=== PATIENT | male | born 1990 | race Caucasian/White ===

== ENCOUNTER 2016-11-16 08:49 | Emergency (ER) | payer OTHER ==
[~2016-11-16] VITALS: Ht 165.1 cm; Wt 174.6 kg
[2016-11-16] MEDS ORDERED: ALBU83IN (09:00)
[2016-11-16] MEDS ORDERED: ALBU17IN (09:00)
[2016-11-16] MEDS ORDERED: ARNU1INH3 (09:00)
[2016-11-16] MEDS ORDERED: ALBUTEROL SULFATE 2.5 MG/0.5 ML INH NEB SOLN INH ONE (09:30)
[2016-11-16] MEDS ORDERED: ALBU83IN INH (10:48)
[2016-11-16 11:05] VITALS: BP 133/75
== END 2016-11-16 11:08 | disposition home or self-care (01) ==
LOC: M ED 09:40
DX: Z76.0 Encounter for issue of repeat prescription (principal); J45.909 Unspecified asthma, uncomplicated; F17.200 Nicotine dependence, unspecified, uncomplicated; Z79.899 Other long term (current) drug therapy; Z79.51 Long term (current) use of inhaled steroids; Z88.8 Allergy status to other drugs, medicaments and biological substances; Z91.048 Other nonmedicinal substance allergy status

== ENCOUNTER 2017-01-13 10:39 | Emergency (ER) | payer OTHER ==
[~2017-01-13] VITALS: Ht 165.1 cm; Wt 170.6 kg
[~2017-01-13 10:39] MED LIST: ALBU17IN; ALBU83IN; ALBU83IN INH; ARNU1INH3
[2017-01-13] MEDS ORDERED: IBUP80TA PO (11:06)
[2017-01-13] MEDS ORDERED: ALBU17IN INH (11:06)
[2017-01-13] MEDS ORDERED: ALBU83IN INH (11:10)
[2017-01-13 11:13] VITALS: BP 145/85
[2017-01-13] MEDS ORDERED: ALBUTEROL 90 MCG/ACT 8GM HFA INHALER INH ONE (11:15)
== END 2017-01-13 11:33 | disposition home or self-care (01) ==
LOC: M ED 11:17
DX: J45.20 Mild intermittent asthma, uncomplicated (principal); Z76.0 Encounter for issue of repeat prescription; E66.9 Obesity, unspecified; F17.200 Nicotine dependence, unspecified, uncomplicated; Z82.49 Family history of ischemic heart disease and other diseases of the circulatory system; Z82.5 Family history of asthma and other chronic lower respiratory diseases; Z88.1 Allergy status to other antibiotic agents; Z91.09 Other allergy status, other than to drugs and biological substances; Z79.51 Long term (current) use of inhaled steroids

== ENCOUNTER 2017-02-09 07:52 | Emergency (ER) | payer MEDICAID, OTHER, SELFPAY ==
[~2017-02-09] VITALS: Ht 165.1 cm; Wt 172.7 kg
[~2017-02-09 07:52] MED LIST changes: +ALBU17IN INH; +IBUP80TA PO
[2017-02-09] MEDS ORDERED: IPRATROPIUM 0.5MG/ALBUTEROL 2.5MG INH SOL UD 3ML (DUONEB)(J7620) NEB SCH (09:00)
[2017-02-09] MEDS ORDERED: CLAR1TAB2 PO (09:13)
[2017-02-09] MEDS ORDERED: ALBU83IN INH (09:13)
[2017-02-09] MEDS ORDERED: AUGM875T28 PO (09:13)
[2017-02-09] MEDS ORDERED: MUCI600T37 PO (09:13)
[2017-02-09 09:26] VITALS: BP 147/72
--- NOTE | 2017-02-09 09:26 | REP ---
Chest two views HISTORY: Cough Comparison: 06/28/2016 The lungs are clear. A right azygos lobe is present. The heart is normal in size. The pulmonary vasculature is normal in appearance. The bony structure is intact. IMPRESSION: No acute disease. Signed by Baudilio Lancaster MD 02/09/2017 09:17 A
[2017-02-09] MEDS ORDERED: AUGMENTIN 875 MG TAB PO ONE (09:30)
== END 2017-02-09 09:36 | disposition home or self-care (01) ==
LOC: M ED 07:52
DX: J20.9 Acute bronchitis, unspecified (principal); J01.90 Acute sinusitis, unspecified; J45.909 Unspecified asthma, uncomplicated; F17.200 Nicotine dependence, unspecified, uncomplicated; Z91.89 Other specified personal risk factors, not elsewhere classified; Z88.8 Allergy status to other drugs, medicaments and biological substances

== ENCOUNTER 2017-02-22 23:38 | Emergency (ER) | payer MEDICAID, SELFPAY ==
[~2017-02-22] VITALS: Ht 165.1 cm; Wt 130.0 kg
[~2017-02-22 23:38] MED LIST changes: +AUGM875T28 PO; +CLAR1TAB2 PO; +MUCI600T37 PO
[2017-02-23] MEDS ORDERED: NS 1,000 ML IV ONE (01:00)
[2017-02-23 01:29] LABS: WHITE BLOOD COUNT 19.3 K/mm3 (4.0-10.0)
[2017-02-23 01:30] LABS: BASO # 0.3 K/mm3 (0.0-0.2); BASO % 1.4 % (0.0-1.0); EOS # 0.6 K/mm3 (0.0-0.50); EOS % 2.9 % (0.0-3.0); LARGE UNSTAINED CELL # 0.7 K/mm3 (0.0-0.4); LARGE UNSTAINED CELL % 3.7 % (0.0-4.0); LYMPH # 4.3 K/mm3 (1.5-6.5); LYMPH % 22.4 % (24.0-44.0); MEAN CORPUSCULAR HEMOGLOBIN 26.3 pg (27.0-33.0); MEAN CORPUSCULAR HGB CONC 33.5 g/dl (32.0-36.5); MEAN CORPUSCULAR VOLUME 78.5 fl (80.0-96.0); MONO # 1.2 K/mm3 (0.0-0.8); NEUTROPHILS # 12.3 K/mm3 (1.8-7.7); NEUTROPHILS % 63.6 % (36.0-66.0); PLATELET COUNT, AUTOMATED 381 k/mm3 (150-450); RED CELL DISTRIBUTION WIDTH 14.3 % (11.5-14.5)
[2017-02-23 01:40] LABS: ALBUMIN 3.6 GM/DL (3.2-5.2); ALBUMIN/GLOBULIN RATIO 0.92 (1.00-1.93); ALKALINE PHOSPHATASE 83 U/L (45-117); ALT/SGPT 34 U/L (12-78); ANION GAP 8 MEQ/L (8-16); AST/SGOT 15 U/L (15-37); BILIRUBIN,DIRECT < 0.1 MG/DL (0.0-0.2); BILIRUBIN,TOTAL 0.2 MG/DL (0.2-1.0); BLOOD UREA NITROGEN 12 MG/DL (7-18); CALCIUM LEVEL 9.4 MG/DL (8.5-10.1); CARBON DIOXIDE LEVEL 24 MEQ/L (21-32); CHLORIDE LEVEL 109 MEQ/L (98-107); CREATININE FOR GFR 0.83 MG/DL (0.70-1.30); GLOMERULAR FILTRATION RATE > 60.0 (>60); GLUCOSE, FASTING 131 MG/DL (70-105); POTASSIUM SERUM 3.3 MEQ/L (3.5-5.1); SODIUM LEVEL 141 MEQ/L (136-145); TOTAL PROTEIN 7.5 GM/DL (6.4-8.2)
[2017-02-23] MEDS ORDERED: ONDANSETRON 4MG/2ML VIAL (J2405) IV ONE (01:45)
[2017-02-23] MEDS: MORPHINE 4 MG/ML 1ML SYRINGE IV PRN ×2 (02:07→03:12)
[2017-02-23] MEDS ORDERED: ISOVUE-370 76% 100ML VIAL (Q9967) As Ordered ONE (02:21)
--- NOTE | 2017-02-23 03:20 | REPUSA ---
CLINICAL HISTORY: Pain. TECHNIQUE: Multiple incremental axial, coronal and oblique images are obtained from the thoracic inle t to the upper abdomen. Intravenous contrast material was administered as per pulmonary embolism prot ocol. COMMENTS: There is bilateral peribronchial interstitial thickening suggestive of bronchitis. There is excellent opacification of pulmonary arterial system without evidence for pulmonary embolism . Aorta is of normal caliber without evidence for dissection or aneurysm. Bilateral basilar atelectatic pulmonary changes. There is no evidence of pleural or parenchymal mass. There are no pleural effusions. There is no evid ence of hilar or mediastinal lymphadenopathy. The heart and great vessels are within normal limits. Images of the upper abdomen demonstrate no evidence of adrenal mass. The bony structures are free of lytic or blastic lesions. IMPRESSION: No evidence for pulmonary embolism. Bronchitis. Thank you for your kind referral of this patient.
--- NOTE | 2017-02-23 03:40 | REPUSA ---
CLINICAL HISTORY: Abdominal pain. TECHNIQUE: Multiple axial, sagittal and coronal CT images were obtained through the abdomen and pelvi s after administration of intravenous contrast material. COMMENTS: The liver is mildly enlarged with decreased attenuation without mass or defect. There is no intra or extrahepatic biliary ductal dilatation. The spleen is normal. The gallbladder is within normal limits . The pancreas is of normal contour and attenuation characteristics. There is no evidence of adrenal mass. 4 mm right renal nonobstructing stone. Both kidneys demonstrate prompt and equal nephrograms. The kidneys are normal in size, shape and conf iguration. There is no evidence of renal or ureteral mass. No left renal or ureteral calculi are iden tified. There is no hydroureter or hydronephrosis. No evidence for appendicitis. There is diffuse apparent thickening of the wall of the ascending colo n and the proximal aspect of the transverse colon. No evidence for small or large bowel obstruction. There is no evidence of abdominal ascites or lymphadenopathy. There is no evidence of intrinsic or extrinsic bladder mass. There is no pelvic ascites or lymphadeno karthikeyan. Images of the lung bases show no evidence of pleural or parenchymal mass. There are no pleural effusi ons. The bony structures are free of lytic or blastic lesions. Bilateral fat containing inguinal hernias without incarceration. IMPRESSION: Diffuse thickening of the wall of the ascending and proximal transverse colon. Underdistention, spasm versus mild colitis. Mild hepatomegaly with fatty infiltration. 4 mm right renal nonobstructing stone. Thank you for your kind referral of this patient.
[2017-02-23] MEDS ORDERED: AZITHROMYCIN 250 MG TAB PO ONE (04:30)
[2017-02-23] MEDS ORDERED: AZIT-12 PO (04:31)
[2017-02-23 04:49] VITALS: BP 152/68
--- NOTE | 2017-02-23 05:55 | ECGEPIP ---
Stationary ECG Study [facility] - ED Test Date: 2017-02-22 Pat Name: MELY SMILEY Department: Room: - Gender: M [employer]: : 1990 Requested By: WESLY Holloway Order Number: [id number] Reading MD: Rudy Caba Measurements Intervals [place] Rate: 91 P: 7 RI: 177 QRS: 53 QRSD: 113 T: 15 QT: 344 QTc: 425 Interpretive Statements SINUS RHYTHM MODERATE INTRAVENTRICULAR CONDUCTION DELAY NSSTW ABNORMALITIES Electronically Signed On 02-23-2017 5:54:55 EDT by Rudy Caba
== END 2017-02-23 04:52 | disposition home or self-care (01) ==
LOC: M ED 23:38
DX: J20.9 Acute bronchitis, unspecified (principal); J45.909 Unspecified asthma, uncomplicated; F17.200 Nicotine dependence, unspecified, uncomplicated; R16.1 Splenomegaly, not elsewhere classified; K76.0 Fatty (change of) liver, not elsewhere classified; N20.0 Calculus of kidney; Z88.8 Allergy status to other drugs, medicaments and biological substances
CPT/HCPCS: 36415; 71275; 74177; 80048; 80076; 82550; 82553; 83690; 85025; 93005; 93041; 96361; 96374; 96375; 99284; J2405; Q9967

== ENCOUNTER → 2017-03-08 | Outpatient (CLI) | payer MEDICAID ==
[~2017-03-08] MED LIST changes: +AZIT-12 PO
== END ==
LOC: M LAB 13:17
PROVIDERS: ATTEND Internal Medicine Cardiovascular Disease
DX: Z53.9 Procedure and treatment not carried out, unspecified reason (principal)

== ENCOUNTER → 2017-03-08 | Outpatient (CLI) | payer MEDICAID | LOC: M LAB 13:14 | PROVIDERS: ATTEND Nurse Practitioner Adult Health | DX: Z22.322 Carrier or suspected carrier of Methicillin resistant Staphylococcus aureus (principal) ==

== ENCOUNTER 2017-06-23 15:57 | Emergency (ER) | payer MEDICAID, OTHER ==
[~2017-06-23] VITALS: Ht 165.1 cm; Wt 175.4 kg
[2017-06-23] MEDS ORDERED: LISI10TA4 PO (16:33)
[2017-06-23] MEDS ORDERED: BRIL90TA PO (16:33)
[2017-06-23] MEDS ORDERED: CARV3.12 PO (16:33)
[2017-06-23] MEDS ORDERED: ATOR40TA75 PO (16:33)
[2017-06-23] MEDS ORDERED: ALBUTEROL SULFATE 2.5 MG/0.5 ML INH NEB SOLN INH ONE (17:45)
[2017-06-23] MEDS ORDERED: ALBU83IN INH (18:29)
[2017-06-23 18:36] VITALS: BP 138/90
== END 2017-06-23 18:38 | disposition home or self-care (01) ==
LOC: M ED 15:57
DX: J45.909 Unspecified asthma, uncomplicated (principal); Z76.0 Encounter for issue of repeat prescription; F17.200 Nicotine dependence, unspecified, uncomplicated; Z79.899 Other long term (current) drug therapy; Z88.8 Allergy status to other drugs, medicaments and biological substances

== ENCOUNTER 2018-03-02 07:53 | Emergency (ER) | payer OTHER ==
[2018-03-02] MEDS: ALBUTEROL 90 MCG/ACT 8GM HFA INHALER INH (08:44)
== END 2018-03-02 09:13 | disposition home or self-care (01) ==
LOC: M ED 07:53
DX: Z76.0 Encounter for issue of repeat prescription (principal); I10 Essential (primary) hypertension; J45.909 Unspecified asthma, uncomplicated; F41.9 Anxiety disorder, unspecified; F33.9 Major depressive disorder, recurrent, unspecified; I25.2 Old myocardial infarction; Z95.5 Presence of coronary angioplasty implant and graft; Z79.899 Other long term (current) drug therapy; Z88.8 Allergy status to other drugs, medicaments and biological substances; F17.210 Nicotine dependence, cigarettes, uncomplicated
CPT/HCPCS: 99283

== ENCOUNTER 2018-06-01 11:25 | Emergency (ER) | payer OTHER ==
[2018-06-01] MEDS: IPRATROPIUM 0.5MG/ALBUTEROL 2.5MG INH SOL UD 3ML (DUONEB)(J7620) NEB (12:32)
[2018-06-01 12:36] LABS: BASO % 0.4 % (0.0-1.0); EOS # 0.3 10^3/uL (0.0-0.50); HEMATOCRIT 39.6 % (42.0-52.0); HEMOGLOBIN 12.7 g/dl (13.5-17.5); IMMATURE GRANULOCYTE % 0.5 % (0-3.0); LYMPH # 1.6 10^3/uL (1.5-6.5); LYMPH % 16.7 % (24.0-44.0); MEAN CORPUSCULAR HEMOGLOBIN 25.3 pg (27.0-33.0); MEAN CORPUSCULAR HGB CONC 32.1 g/dl (32.0-36.5); MONO # 0.6 10^3/uL (0.0-0.8); NEUTROPHILS # 7.1 10^3/uL (1.8-7.7); NEUTROPHILS % 73.4 % (36.0-66.0); PLATELET COUNT, AUTOMATED 212 10^3/uL (150-450); RED BLOOD COUNT 5.01 10^6/uL (4.30-6.10); RED CELL DISTRIBUTION WIDTH 14.7 % (11.5-14.5); WHITE BLOOD COUNT 9.6 10^3/uL (4.0-10.0)
[2018-06-01 12:39] LABS: INR 0.95; PROTHROMBIN TIME 12.8 SECONDS (12.1-14.4)
[2018-06-01] MEDS: dexameTHASONE 20 MG/5 ML VIAL (J1100) IV (12:47)
[2018-06-01 12:54] LABS: ANION GAP 9 MEQ/L (8-16); BLOOD UREA NITROGEN 11 MG/DL (7-18); CALCIUM LEVEL 8.9 MG/DL (8.5-10.1); CARBON DIOXIDE LEVEL 24 MEQ/L (21-32); CHLORIDE LEVEL 109 MEQ/L (98-107); CREATININE FOR GFR 0.67 MG/DL (0.70-1.30); GLOMERULAR FILTRATION RATE > 60.0 (>60); GLUCOSE, FASTING 107 MG/DL (70-100); POTASSIUM SERUM 3.5 MEQ/L (3.5-5.1); SODIUM LEVEL 142 MEQ/L (136-145)
[2018-06-01 12:55] LABS: ALBUMIN 3.6 GM/DL (3.2-5.2); ALBUMIN/GLOBULIN RATIO 0.97 (1.00-1.93); ALKALINE PHOSPHATASE 79 U/L (45-117); ALT/SGPT 27 U/L (12-78); AST/SGOT 14 U/L (7-37); BILIRUBIN,DIRECT 0.1 MG/DL (0.0-0.2); BILIRUBIN,TOTAL 0.3 MG/DL (0.2-1.0); CK-MB VALUE MASS < 1.0 NG/ML (<3.6); CPK CREATINE PHOSPHOKINASE 76 U/L (39-308); MB/CK RELATIVE INDEX 1.32 (< OR =4); NT-PRO BNP 341 PG/ML (<125); TOTAL PROTEIN 7.3 GM/DL (6.4-8.2); TROPONIN I < 0.02 NG/ML (< 0.10)
[2018-06-01 14:01] LABS: INFLUENZA A AMPLIFICATION NEGATIVE (NEGATIVE); INFLUENZA B AMPLIFICATION NEGATIVE (NEGATIVE); RSV AMPLIFICATION NEGATIVE (NEGATIVE)
== END 2018-06-01 14:12 | disposition home or self-care (01) ==
LOC: M ED 11:25
DX: J45.901 Unspecified asthma with (acute) exacerbation (principal); I50.9 Heart failure, unspecified; K21.9 Gastro-esophageal reflux disease without esophagitis; G47.33 Obstructive sleep apnea (adult) (pediatric); F17.200 Nicotine dependence, unspecified, uncomplicated; Z95.5 Presence of coronary angioplasty implant and graft
CPT/HCPCS: J1100

== ENCOUNTER → 2019-01-04 | Outpatient (REF) | payer OTHER, MEDICAID ==
[~2019-01-04] MED LIST changes: +ALBU83IN NEB; +ATOR40TA75 PO; +BRIL90TA PO; +CARV3.12 PO; +LISI10TA4 PO; +PRED20TA PO
[2019-01-04 19:16] LABS: BASO # 0.1 10^3/uL (0.0-0.2); BASO % 0.4 % (0.0-1.0); EOS # 0.2 10^3/uL (0.0-0.50); HEMOGLOBIN 13.3 g/dl (13.5-17.5); LYMPH # 2.7 10^3/uL (1.5-6.5); LYMPH % 22.8 % (24.0-44.0); MEAN CORPUSCULAR HEMOGLOBIN 25.2 pg (27.0-33.0); MEAN CORPUSCULAR HGB CONC 30.9 g/dl (32.0-36.5); MEAN CORPUSCULAR VOLUME 81.4 fl (80.0-96.0); MONO # 0.6 10^3/uL (0.0-0.8); MONO % 4.7 % (0.0-5.0); NEUTROPHILS # 8.2 10^3/uL (1.8-7.7); NEUTROPHILS % 69.7 % (36.0-66.0); PLATELET COUNT, AUTOMATED 222 10^3/uL (150-450); RED BLOOD COUNT 5.28 10^6/uL (4.30-6.10); WHITE BLOOD COUNT 11.8 10^3/uL (4.0-10.0)
[2019-01-04 19:28] LABS: ALBUMIN 3.4 GM/DL (3.2-5.2); ALT/SGPT 45 U/L (12-78); BILIRUBIN,TOTAL 0.2 MG/DL (0.2-1.0); BLOOD UREA NITROGEN 15 MG/DL (7-18); CALCIUM LEVEL 8.3 MG/DL (8.5-10.1); CARBON DIOXIDE LEVEL 25 MEQ/L (21-32); CHLORIDE LEVEL 109 MEQ/L (98-107); CHOLESTEROL LEVEL 183 MG/DL (<200); CHOLESTEROL RISK RATIO 4.815 (<5); CREATININE FOR GFR 0.89 MG/DL (0.70-1.30); FREE T4 1.01 NG/DL (0.76-1.46); GLOMERULAR FILTRATION RATE > 60.0 (>60); GLUCOSE, FASTING 85 MG/DL (70-100); HDL CHOLESTEROL 38 MG/DL (>40); LDL CHOLESTEROL 104 MG/DL (<100); NON-HDL-C 145 MG/DL; SODIUM LEVEL 141 MEQ/L (136-145); TOTAL PROTEIN 7.3 GM/DL (6.4-8.2); TRIGLYCERIDES LEVEL 205 MG/DL (<150)
[2019-01-04 19:30] LABS: TOTAL 25(OH) VITAMIN D 11.9 NG/ML (30.0-100.0)
[2019-01-04 20:09] LABS: HEMOGLOBIN A1c 5.3 %
== END ==
LOC: M LAB REF 18:33
PROVIDERS: ATTEND Nurse Practitioner Family
DX: Z13.9 Encounter for screening, unspecified (principal); I10 Essential (primary) hypertension; I25.2 Old myocardial infarction

== ENCOUNTER 2020-09-08 10:44 | Emergency (ER) | payer MEDICAID, OTHER ==
[~2020-09-08] VITALS: Ht 167.6 cm; Wt 183.5 kg
--- OUTSIDE RECORDS SUMMARY | 2020-09-08 10:59 | CCD ---
Author Author [facility] Address Unknown Phone Unavailable Support Name Relationship Address Phone Wesly Next Of Kin Unknown Unavailable Danielle Gil Next Of Kin [address] [place] [address] BUFFALOWW Next Of Kin [address] [place] [address] PAWEL Next Of Kin [address] [place] [address] NILAM ARIAS Next Of Kin [address] [facility] [facility] [address] [place] [address] IVIS SORENSON Next Of Kin [address] [place] [address] BRIEN ARIAS Next Of Kin [address] [facility] [address] [place] [address] WESLY BELTRAN Next Of Kin [address] [place] [address] MANOJ Next Of Kin [address] [place] [address] NICHOLE ARIAS Next Of Kin [address] [facility] [facility] [address] [place] [address] ALFIE ARIAS Next Of Kin [address] [facility] [address] [place] [address] BURGRSTATE Next Of Kin [address] [place] [address] [place]. CORuben RECYCLING WASTE Next Of Kin [address] [address] UNEMPLOYED Next Of Kin [address] [place] [address] BABAR MEMBRENO Next Of Kin [address] [facility] [address] [place] [address] TEMI LINH Next Of Kin [address] [facility] [address] [place] [address] QASIMZIGGYE Next Of Kin Unknown HCARLESJOYDEVORA Next Of Kin [address] [place] [address] SMILEYERWIN LARRY Next Of Kin [address] [place] [address] MARIO SMILEY Next Of Kin [address] [place] [address] MERCEDEZ MONIQUE Next Of Kin [address] [facility] [address] [place] [address] ST Next Of Kin Unknown Unavailable JUDIE MONIQUE Next Of Kin [address] [place] [address] UE Next Of Kin Unknown Unavailable DENAE HOOPER Next Of Kin 7 / [facility] [address] [place] [address] Care Team Providers Care Skein Drier Name Role Phone Jason, Danielle DIRECTOR NICU DIRECTOR NICU Unavailable Unavailable Jason, A Danielle DIRECTOR NICU Unavailable Unavailable Jason, A Danielle DIRECTOR NICU Unavailable Unavailable Jsaon, A Danielle DIRECTOR NICU Unavailable Unavailable Jason, A Danielle DIRECTOR NICU Unavailable Unavailable [place], A Danielle DIRECTOR NICU Unavailable Unavailable [place], A Danielle DIRECTOR NICU Unavailable Unavailable Jason, A Danielle DIRECTOR NICU Unavailable Unavailable Jason, A Danielle DIRECTOR NICU Unavailable Unavailable Jason, A Danielle DIRECTOR NICU Unavailable Unavailable Jason, A Danielle DIRECTOR NICU Unavailable Unavailable [place], A Danielle DIRECTOR NICU Unavailable Unavailable Jason, A Danielle DIRECTOR NICU Unavailable Unavailable Jason, A Danielle DIRECTOR NICU Unavailable Unavailable Jason, A Danielle DIRECTOR NICU Unavailable Unavailable Jason, A Danielle DIRECTOR NICU Unavailable Unavailable Jason, A Danielle DIRECTOR NICU Unavailable Unavailable Jason, A Danielle DIRECTOR NICU Unavailable Unavailable Jason, A Danielle DIRECTOR NICU Unavailable Unavailable Jason, A Danielle DIRECTOR NICU Unavailable Unavailable Jason, A Danielle DIRECTOR NICU Unavailable Unavailable Jason, A Danielle DIRECTOR NICU Unavailable Unavailable Jason, A Danielle DIRECTOR NICU Unavailable Unavailable Jason, A Danielle DIRECTOR NICU Unavailable Unavailable Jason, A Danielle DIRECTOR NICU Unavailable Unavailable Jason, A Danielle DIRECTOR NICU Unavailable Unavailable Jason, A Danielle DIRECTOR NICU Unavailable Unavailable Jason, A Danielle DIRECTOR NICU Unavailable Unavailable Jason, A Danielle DIRECTOR NICU Unavailable Unavailable Re-disclosure Warning The records that you are about to access may contain information from federally-assisted alcohol or drug abuse programs. If such information is present, then the following federally mandated warning applies: This information has been disclosed to you from records protected by federal confidentiality rules (42 CFR part 2). The federal rules prohibit you from making any further disclosure of this information unless further disclosure is expressly permitted by the written consent of the person to whom it pertains or as otherwise permitted by 42 CFR part 2. A general authorization for the release of medical or other information is NOT sufficient for this purpose. The Federal rules restrict any use of the information to criminally investigate or prosecute any alcohol or drug abuse patient.The records that you are about to access may contain highly sensitive health information, the redisclosure of which is protected by Article 27-F of the [facility] Public Health law. If you continue you may have access to information: Regarding HIV / AIDS; Provided by facilities licensed or operated by the [facility] Office of Mental Health; or Provided by the [facility] Office for People With Developmental Disabilities. If such information is present, then the following [facility] mandated warning applies: This information has been disclosed to you from confidential records which are protected by state law. State law prohibits you from making any further disclosure of this information without the specific written consent of the person to whom it pertains, or as otherwise permitted by law. Any unauthorized further disclosure in violation of state law may result in a fine or detention sentence or both. A general authorization for the release of medical or other information is NOT sufficient authorization for further disc losure. Family History Family Member Name Family Member Gender Family Member Status Date o f Status Description Data Source(s) Unknown Unknown Problem [facility] ([facility]) Encounters Encounter Providers Location Date Indications Data Source(s ) Outpatient Attender: CHELITA Gomez [facility] 06/09/2020 04:38:01 P M EST [facility] Outpatient Attender: CHEILTA Gomez [facility] 05/08/2020 12:02:31 A M EDT [facility] Outpatient Attender: CHELITA Gomez [facility] 05/07/2020 04:01:00 P M EDT [facility] Outpatient Attender: Danielle JERRYP FP 05/05/2020 06:1 6:03 AM EDT [facility] Outpatient Attender: Danielle JERRYP FP 02/24/2020 01:1 6:00 PM EDT [facility] Outpatient Attender: CHELITA JERRYP FP 01/14/2020 07:55:10 P M EDT [facility] Outpatient Attender: Danielle JERRYP FP 12/23/2019 08:3 1:01 AM EDT [facility] Outpatient Attender: Danielle Gomez DIRECTOR NICU FP 10/20/2019 11:3 2:01 AM EDT [facility] Outpatient Attender: CHELITA JERRYP FP 10/17/2019 11:57:01 A M EDT [facility] Outpatient Attender: CHELITA Gomez DIRECTOR NICU FP 10/11/2019 10:53:01 A M [facility] Outpatient Attender: CHELITA JERRYP FP 09/30/2019 12:47:01 P M [facility] Outpatient Attender: CHELITA Gomez DIRECTOR NICU FP 09/26/2019 03:39:06 P M [facility] Outpatient Attender: CHELITA JERRYP FP 09/18/2019 05:26:00 P M [facility] Outpatient Attender: Danielle JERRYP FP 09/18/2019 01:1 6:02 PM [facility] Outpatient Attender: CHELITA JERRYP FP 09/11/2019 11:24:01 A M [facility] Outpatient Attender: CHELITA JERRYP FP 09/11/2019 10:41:00 A M [facility] Outpatient Attender: CHELITA JERRYP FP 08/20/2019 10:35:01 A M [facility] Outpatient Attender: Danielle JERRYP FP 08/18/2019 05:1 4:59 PM [facility] Outpatient Attender: CHELITA JERRYP FP 08/15/2019 11:19:00 A M [facility] Outpatient Attender: CHELITA JERRYP FP 08/15/2019 11:18:00 A M [facility] Outpatient Attender: CHELITA JERRYP FP 08/14/2019 04:53:02 P M [facility] Outpatient Attender: Danielle Gomez DIRECTOR NICU 08/14/2019 11:0 8:01 AM [facility] Outpatient Attender: CHELITA Gomez DIRECTOR NICU 08/14/2019 10:38:00 A M [facility] Outpatient Attender: CHELITA Gomez DIRECTOR NICU 08/09/2019 09:04:01 A M [facility]: [facility] 09:4 0:00 AM [facility] Outpatient Attender: Danielle Gomez DIRECTOR NICU 07/21/2019 07:3 9:01 PM [facility] Outpatient Attender: CHELITA Gomez DIRECTOR NICU 07/19/2019 10:22:00 A M [facility] Medications Medication Brand Name Start Date Product Form Dose Route Admi nistrative Instructions Pharmacy Instructions Status Indications Reaction Description Data Source(s) 90 mcg/actuation 05/05/2020 12:00:00 AM EDT HFA aerosol inha ler 18 INHALE TWO PUFFS BY MOUTH EVERY 4 HOURS NEEDED FOR FOR SHORTNESS OF BREATH INHALE TWO PUFFS BY MOUTH EVERY 4 HOURS NEEDED FOR FOR SHORTNESS OF BREATH SOLD: 05/23/2020 [facility] 90 mcg/actuation 05/05/2020 12:00:00 AM EDT HFA aerosol inha ler 18 INHALE TWO PUFFS BY MOUTH EVERY 4 HOURS NEEDED FOR FOR SHORTNESS OF BREATH INHALE TWO PUFFS BY MOUTH EVERY 4 HOURS NEEDED FOR FOR SHORTNESS OF BREATH SOLD: 05/13/2020 [facility] 90 mcg/actuation 05/05/2020 12:00:00 AM EDT HFA aerosol inha ler 18 INHALE TWO PUFFS BY MOUTH EVERY 4 HOURS NEEDED FOR FOR SHORTNESS OF BREATH INHALE TWO PUFFS BY MOUTH EVERY 4 HOURS NEEDED FOR FOR SHORTNESS OF BREATH SOLD: 05/13/2020 [facility] 90 mcg/actuation 02/24/2020 12:00:00 AM EDT HFA aerosol inha ler 18 INHALE TWO PUFFS BY MOUTH EVERY 4 HOURS NEEDED FOR FOR SHORTNESS OF BREATH INHALE TWO PUFFS BY MOUTH EVERY 4 HOURS NEEDED FOR FOR SHORTNESS OF BREATH SOLD: 03/25/2020 [facility] 90 mcg/actuation 02/24/2020 12:00:00 AM EDT HFA aerosol inha ler 18 INHALE TWO PUFFS BY MOUTH EVERY 4 HOURS NEEDED FOR FOR SHORTNESS OF BREATH INHALE TWO PUFFS BY MOUTH EVERY 4 HOURS NEEDED FOR FOR SHORTNESS OF BREATH SOLD: 03/06/2020 [facility] 90 mcg/actuation 02/24/2020 12:00:00 AM EDT HFA aerosol inha ler 18 INHALE TWO PUFFS BY MOUTH EVERY 4 HOURS NEEDED FOR FOR SHORTNESS OF BREATH INHALE TWO PUFFS BY MOUTH EVERY 4 HOURS NEEDED FOR FOR SHORTNESS OF BREATH SOLD: 04/03/2020 [facility] 90 mcg/actuation 12/23/2019 12:00:00 AM EDT HFA aerosol inha ler 18 INHALE TWO PUFFS BY MOUTH EVERY 4 HOURS NEEDED FOR FOR SHORTNESS OF BREATH INHALE TWO PUFFS BY MOUTH EVERY 4 HOURS NEEDED FOR FOR SHORTNESS OF BREATH SOLD: 01/21/2020 [facility] 90 mcg/actuation 12/23/2019 12:00:00 AM EDT HFA aerosol inha ler 18 INHALE TWO PUFFS BY MOUTH EVERY 4 HOURS NEEDED FOR FOR SHORTNESS OF BREATH INHALE TWO PUFFS BY MOUTH EVERY 4 HOURS NEEDED FOR FOR SHORTNESS OF BREATH SOLD: 01/03/2020 [facility] 90 mcg/actuation 12/23/2019 12:00:00 AM EDT HFA aerosol inha ler 18 INHALE TWO PUFFS BY MOUTH EVERY 4 HOURS NEEDED FOR FOR SHORTNESS OF BREATH INHALE TWO PUFFS BY MOUTH EVERY 4 HOURS NEEDED FOR FOR SHORTNESS OF BREATH SOLD: 02/03/2020 [facility] 90 mcg/actuation 11/27/2019 12:00:00 AM EDT HFA aerosol inha ler 18 INHALE TWO PUFFS BY MOUTH EVERY 4 HOURS NEEDED FOR SHORTNESS OF BREATH INHALE TWO PUFFS BY MOUTH EVERY 4 HOURS NEEDED FOR SHORTNESS OF BREATH SOLD: 11/27/2019 [facility] 875 mg 10/30/2019 12:00:00 AM EDT tablet 20 TAKE ONE TABLET BY MOUTH EVERY 12 HOURS FOR 10 DAYS TAKE ONE TABLET BY MOUTH EVERY 12 HOURS FOR 10 DAYS SO LD: 10/30/2019 [facility] 2.5 mg /3 mL (0.083 %) 10/30/2019 12:00:00 AM EDT solu tion for nebulization 75 INHALE CONTENTS OF 1 VIAL VIA NEBULIZER FOUR TIMES A DAY NEEDED INHALE CONTENTS OF 1 VIAL VIA NEBULIZER FOUR TIMES A DAY NEEDED SOLD: 10/30/2019 [facility] 90 mcg/actuation 10/20/2019 12:00:00 AM EDT HFA aerosol inha ler 18 INHALE TWO PUFFS BY MOUTH EVERY 4 HOURS NEEDED FOR SHORTNESS OF BREATH INHALE TWO PUFFS BY MOUTH EVERY 4 HOURS NEEDED FOR SHORTNESS OF BREATH SOLD: 10/30/2019 [facility] 90 mcg/actuation 10/20/2019 12:00:00 AM EDT HFA aerosol inha ler 18 INHALE TWO PUFFS BY MOUTH EVERY 4 HOURS NEEDED FOR SHORTNESS OF BREATH INHALE TWO PUFFS BY MOUTH EVERY 4 HOURS NEEDED FOR SHORTNESS OF BREATH SOLD: 11/11/2019 [facility] 250-50 mcg/dose 08/21/2019 12:00:00 AM EST blister with malina ce 60 INHALE ONE PUFF BY MOUTH TWICE A DAY INHALE ONE PUFF BY MOUTH TWICE A DAY SOLD: 08/21/2019 [facility] 90 mcg/actuation 08/19/2019 12:00:00 AM EST HFA aerosol inha ler 18 INHALE TWO PUFFS BY MOUTH EVERY 4 HOURS NEEDED FOR FOR SHORTNESS OF BREATH INHALE TWO PUFFS BY MOUTH EVERY 4 HOURS NEEDED FOR FOR SHORTNESS OF BREATH SOLD: 09/26/2019 [facility] 90 mcg/actuation 08/19/2019 12:00:00 AM EST HFA aerosol inha ler 18 INHALE TWO PUFFS BY MOUTH EVERY 4 HOURS NEEDED FOR FOR SHORTNESS OF BREATH INHALE TWO PUFFS BY MOUTH EVERY 4 HOURS NEEDED FOR FOR SHORTNESS OF BREATH SOLD: 09/25/2019 [facility] 90 mcg/actuation 08/19/2019 12:00:00 AM EST HFA aerosol inha ler 18 INHALE TWO PUFFS BY MOUTH EVERY 4 HOURS NEEDED FOR FOR SHORTNESS OF BREATH INHALE TWO PUFFS BY MOUTH EVERY 4 HOURS NEEDED FOR FOR SHORTNESS OF BREATH SOLD: 08/19/2019 [facility] 10 mg 08/17/2019 12:00:00 AM EST tablet 30 TAKE ONE TABLET BY MOUTH EVERY DAY TAKE ONE TABLET BY MOUTH EVERY DAY SOLD: 02/03/2020 [facility] 10 mg 08/17/2019 12:00:00 AM EST tablet 30 TAKE ONE TABLET BY MOUTH EVERY DAY TAKE ONE TABLET BY MOUTH EVERY DAY SOLD: 09/26/2019 [facility] 10 mg 08/17/2019 12:00:00 AM EST tablet 30 TAKE ONE TABLET BY MOUTH EVERY DAY TAKE ONE TABLET BY MOUTH EVERY DAY SOLD: 08/19/2019 [facility] 500 mg 08/15/2019 12:00:00 AM EST tablet 60 TAKE ONE TABLET BY MOUTH TWICE A DAY WITH FOOD TAKE ONE TABLET BY MOUTH TWICE A DAY WITH FOOD SOLD: 08/15/2019 [facility] 5 mg 08/15/2019 12:00:00 AM EST tablet 30 TAKE ONE TABLET BY MOUTH EVERY DAY TAKE ONE TABLET BY MOUTH EVERY DAY SOLD: 02/03/2020 [facility] carvedilol 3.125 MG Oral Tablet CARVEDILOL 08/15/2019 12:00:00 AM EST tablet 30 TAKE ONE TABLET BY MOUTH EVERY DAY TAKE ONE TABLET BY MOUTH EVERY DAY SOLD: 08/15/2019 [facility] 5 mg 08/15/2019 12:00:00 AM EST tablet 30 TAKE ONE TABLET BY MOUTH EVERY DAY TAKE ONE TABLET BY MOUTH EVERY DAY SOLD: 08/15/2019 [facility] 5 mg 08/15/2019 12:00:00 AM EST tablet 30 TAKE ONE TABLET BY MOUTH EVERY DAY TAKE ONE TABLET BY MOUTH EVERY DAY SOLD: 08/15/2019 [facility] 0.5 mg (11)- 1 mg (42) 08/15/2019 12:00:00 AM EST tablets,do se pack 53 TAKE BY MOUTH PER PACKAGE INSTRUCTIONS TAKE BY MOUTH PER PACKAGE INSTRUCTIONS SOLD: 08/15/2019 [facility] 60 mg 08/15/2019 12:00:00 AM EST tablet 30 TAKE ONE TABLET BY MOUTH EVERY DAY TAKE ONE TABLET BY MOUTH EVERY DAY SOLD: 08/15/2019 [facility] 60 mg 08/15/2019 12:00:00 AM EST tablet 30 TAKE ONE TABLET BY MOUTH EVERY DAY TAKE ONE TABLET BY MOUTH EVERY DAY SOLD: 02/03/2020 [facility] carvedilol 3.125 MG Oral Tablet CARVEDILOL 08/15/2019 12:00:00 AM EST tablet 30 TAKE ONE TABLET BY MOUTH EVERY DAY TAKE ONE TABLET BY MOUTH EVERY DAY SOLD: 02/03/2020 [facility] 81 mg 08/15/2019 12:00:00 AM EST tablet,chewable 30 CHEW ONE TABLET BY MOUTH EVERY DAY CHEW ONE TABLET BY MOUTH EVERY DAY SOLD: 02/03/2020 [facility] 5 mg 08/15/2019 12:00:00 AM EST tablet 30 TAKE ONE TABLET BY MOUTH EVERY DAY TAKE ONE TABLET BY MOUTH EVERY DAY SOLD: 03/17/2020 [facility] 60 mg 08/15/2019 12:00:00 AM EST tablet 30 TAKE ONE TABLET BY MOUTH EVERY DAY TAKE ONE TABLET BY MOUTH EVERY DAY SOLD: 03/17/2020 [facility] 81 mg 08/15/2019 12:00:00 AM EST tablet,chewable 30 CHEW ONE TABLET BY MOUTH EVERY DAY CHEW ONE TABLET BY MOUTH EVERY DAY SOLD: 08/15/2019 [facility] carvedilol 3.125 MG Oral Tablet CARVEDILOL 08/15/2019 12:00:00 AM EST tablet 30 TAKE ONE TABLET BY MOUTH EVERY DAY TAKE ONE TABLET BY MOUTH EVERY DAY SOLD: 03/17/2020 [facility] 1,250 mcg (50,000 unit) 08/15/2019 12:00:00 AM EST capsule 4 TAKE ONE CAPSULE BY MOUTH EVERY WEEKLY TAKE ONE CAPSULE BY MOUTH EVERY WEEKLY SOLD: 03/17/2020 [facility] 1,250 mcg (50,000 unit) 08/15/2019 12:00:00 AM EST capsule 4 TAKE ONE CAPSULE BY MOUTH EVERY WEEKLY TAKE ONE CAPSULE BY MOUTH EVERY WEEKLY SOLD: 08/15/2019 [facility] 1,250 mcg (50,000 unit) 08/15/2019 12:00:00 AM EST capsule 4 TAKE ONE CAPSULE BY MOUTH EVERY WEEKLY TAKE ONE CAPSULE BY MOUTH EVERY WEEKLY SOLD: 02/03/2020 [facility] 50 mg 08/13/2019 12:00:00 AM EST tablet 60 TAKE ONE TABLET BY MOUTH TWICE A DAY TAKE ONE TABLET BY MOUTH TWICE A DAY SOLD: 08/15/2019 [facility] 137 mcg (0.1 %) 07/30/2019 12:00:00 AM EST aerosol,spray 30 SPRAY ONE TO TWO SPRAYS IN EACH NOSTRIL TWICE A DAY FOR 10 DAYS SPRAY ONE TO TWO SPRAYS IN EACH NOSTRIL TWICE A DAY FOR 10 DAYS SOLD: 07/30/2019 [facility] 10 mg 07/22/2019 12:00:00 AM EST tablet 30 TAKE ONE TABLET BY MOUTH EVERY DAY TAKE ONE TABLET BY MOUTH EVERY DAY SOLD: 07/30/2019 [facility] 90 mcg/actuation 06/18/2019 12:00:00 AM EST HFA aerosol inha ler 18 INHALE TWO PUFFS BY MOUTH EVERY 4 HOURS NEEDED FOR SHORTNESS OF BREATH INHALE TWO PUFFS BY MOUTH EVERY 4 HOURS NEEDED FOR SHORTNESS OF BREATH SOLD: 07/19/2019 [facility] 250-50 mcg/dose 06/18/2019 12:00:00 AM EST blister with malina ce 60 INHALE ONE PUFF BY MOUTH TWICE A DAY INHALE ONE PUFF BY MOUTH TWICE A DAY SOLD: 07/30/2019 [facility] 90 mcg/actuation 06/18/2019 12:00:00 AM EST HFA aerosol inha ler 18 INHALE TWO PUFFS BY MOUTH EVERY 4 HOURS NEEDED FOR SHORTNESS OF BREATH INHALE TWO PUFFS BY MOUTH EVERY 4 HOURS NEEDED FOR SHORTNESS OF BREATH SOLD: 08/04/2019 [facility] 60 mg 06/04/2019 12:00:00 AM EDT tablet 30 TAKE ONE TABLET BY MOUTH EVERY DAY TAKE ONE TABLET BY MOUTH EVERY DAY SOLD: 07/19/2019 [facility] carvedilol 3.125 MG Oral Tablet CARVEDILOL 06/02/2019 12:00:00 AM EDT tablet 30 TAKE ONE TABLET BY MOUTH EVERY DAY TAKE ONE TABLET BY MOUTH EVERY DAY SOLD: 07/19/2019 [facility] 5 mg 06/02/2019 12:00:00 AM EDT tablet 30 TAKE ONE TABLET BY MOUTH EVERY DAY TAKE ONE TABLET BY MOUTH EVERY DAY SOLD: 07/19/2019 [facility] 81 mg 04/15/2019 12:00:00 AM EDT tablet,delayed release (DR/EC) 30 TAKE ONE TABLET BY MOUTH EVERY DAY TAKE ONE TABLET BY MOUTH EVERY DAY SOLD: 07/30/2019 [facility] 1,250 mcg (50,000 unit) 01/24/2019 12:00:00 AM EDT capsule 4 TAKE ONE TABLET ABLET BY MOUTH WEEKLY TAKE ONE TABLET ABLET BY MOUTH WEEKLY SOLD: 07/19/2019 [facility] Insurance Providers Payer name Policy type / Coverage type Policy ID Covered constitution party ID Covered constitution party's relationship to rojas Policy Rojas Plan Information Medicaid S [id number] S [id number] [facility] Plan P [id number] S [id number] Medicaid S [id number] S [id number] Medicaid S [id number] S [id number] [facility] Plan P [id number] S [id number] [facility] P [id number] S [id number] [facility] [employer] PLAN [facility] [id number] SP [id number] MEDICAID [id number] SP [id number] Managed Care - [facility] P [id number] S [id number] Medicaid S [id number] S [id number] [facility] [id number] SP [id number] [facility] PLAN [facility] [id number] SP [id number] [facility] Health Maintenance Organization (HMO) [id number] [facility] Health Maintenance Organization (HMO) [id number] Self [id number] MEDICAID -O/P [id number] MEDICAID [id number] Luz [id number] MEDICAID PI PI MEDICAID -O/P EMERGENCY ROOM [id number] MEDICAID -O/P EMERGENCY ROOM [id number] SELF PAY ONLY [id number] SP [id number] [facility] [id number] SP [id number] [facility](MCAID) O [id number] S [id number] PETEY [id number] SP [id number] [facility] [place] O [id number] S [id number] Pet[facility] Care Commercial Self SELF PAY UNAVAILABLE SP UNAVAILA BLE BLUE CROSS BELTRAN PLAN [id number] SP [id number] [facility] BLUE [facility] [id number] [facility] [id number] SP [id number] SELF PAY [id number] SP [id number] MEDICAID P [id number] S [id number] Results ID Date Data Source [id number] 08/20/2020 12:00:00 AM EST [facility] Name Value Range Interpretation Code Description Data Socorro rce(s) Supporting Document(s) SARS-CoV2 Rapid Antigen Negative [facility] and reported by [facility]. ID Date Data Source [id number] 09/11/2019 11:04:48 AM EST [facility] Measurements & CalculationsWeight: 388 pounds 6 oz. 176.54 kg Vital SignsPulse Rate: 87 beats/minuteBlood Pressure: 136/87 Vital Signs performed by: Tucker Spears MA, September 11, 2019 11:05 AMAssessment & Plan Orders:[id number] Vst-Est Level I [[id number]] Name Value Range Interpretation Code Description Data Socorro rce(s) Supporting Document(s) ID Date Data Source [id number] 08/14/2019 06:03:13 PM EST [facility] Measurements & CalculationsHeight: 65 inches (5 ft. 5 in.) 165.10 cm Weight: 392 pounds 8 oz. 178.41 kg Body Mass Index (BMI): 65.55BMI Interpretation: Morbidly ObeseBody Surface Area (BSA): 2.64Weight Management Education Done (Nutrition/Physical Activity)Vital SignsTemperature: 97.4F 36.33C oral Pulse Rate: 87 beats/minuteRespiratory Rate: 16 respirations/minuteBlood Pressure: 130/73 left arm sitting automaticO2 Saturation: 98% room airVital Signs performed by: Crystal Chahal MA, August 14, 2019 6:03 PMInitial Intake Information from: patientRoom #: 8Infectious Disease- Travel Have you or your sexual partner travelled outside of the country recently? NoSmoking, Tobacco or Smoke Exposure StatusSmoke Status: current every day smokerTobacco Use: YesAdv to Quit: YesPassive Smoke Exposure: YesHealthcare HistorySince your last office visit...Have you been admitted to the hospital? NoHave you been to an emergency room (ER) or urgent care clinic? Yes - Sinus infection Emergency room (ER) or urgent care date reported today: 08/01/2019Have you seen another healthcare provider? No - not in couple years[place] NoIntake performed by: Crystal Chahal MA, August 14, 2019 6:05 PMRate Your HealthIn general, would you say your health is? FairPain AssessmentAre you currently having any pain which... You would like your provider to address? No Affects your activity level? NoDepression Screening - PHQ-2Over the last two weeks, have you... Had little interest or pleasure in doing things? Not at all Been feeling down, depressed, or hopeless? Not at all PHQ-2 Score: 0Anxiety Screening - WILLIAM-2Over the last two weeks, have you been... Feeling nervous, anxious, or on edge? Not at all Unable to stop or control worrying? Not at all WILLIAM-2 Score: 0Screening, Brief Intervention, & Referral to Treatment (SBIRT)Pre-Screening Questions How many times have you have 5 or more drinks in a day? 0How many times have you used an illegal drug or used a prescription medication for a non- medical reason? 0Performed by: Crystal Chahal MA, August 14, 2019 6:05 PMPatient History Medical History:MIasthmaSurgical History:stents for MIhernia surgery as a kidFamily History:heart disease all sidesHTNDM cholesterolSocial/Personal History: Smoking Status: current every day smokerAdvised to Quit/Tobacco Education: YesChief Complaintfollow-up visitHistory of Present Illness (HPI)28 yo male here today for follow up visit. Pt was previously referred to bindery worker , Pulmonary and dietary. Pt statates did not received appointments.Pt is requesting referrals to be reordered. Pt states that he is considering weight loss surgery with Dr Berkowitz. Pt verbalized need to quit smoking proir to weight loss surgery. Pt is requesting assistance in doing so. Pt states have failed nicotine patches and lozengers in the past. Pt has agreed to try chantix. Pt states presently out of all medications . Pt is requesting refills. HPI performed by: Danielle MERLOS, August 14, 2019 6:51 PMTransitions of Care InboundProblem ReviewProblem List was reviewed and/or updated during this visit.Medication Reconciliation & ReviewMedication List was reviewed and/or updated during this visit, including review of any [id number] medications, herbal therapies, and/or supplements.Allergy ReviewAllergy List was reviewed and/or updated during this visit.Adult Preventive CareProvider Calculated and Reviewed all Clinical Protocols for patient today. Screening Tobacco Screening: Smoking Status: current every day smoker (08/14/2019) Advised to Quit: Yes (08/14/2019)Labs/Meds/Other Counseling-Nutrition and Physical Activity:BMI Interpretation: Morbidly Obese (0 08/14/2019) Counseling: Done (08/14/2019) Physical Activity: Done (08/14/2019)Review of Systems General: Denies loss of appetite, chills, dizziness, fatigue, fever, continued fever, headache, feeling ill, sweats, night sweats, sleep disturbances, weight loss. Eyes: Denies blurring of vision, double vision, irritation, discharge, vision loss, eye pain, eye swelling, droopy eyelid, sensitivity to light, redness, itching. Ears/Nose/Throat: Denies earache, ear discharge, ringing in ears, decreased hearing, nasal congestion, nosebleeds, runny nose, sore throat, hoarseness, difficulty swallowing, dry radha th, tooth pain, bleeding gums, swollen glands. Cardiovascular: Denies chest pain, palpitations, feeling faint, trouble breathing w/exertion, SOB upon lying down, SOB at night, peripheral edema, elevated blood pressure, decreased heart rate. Respiratory: Denies cough, difficulty breathing, shortness of breath, excessive sputum, coughing up blood, wheezing, chest pain. Gastrointestinal: Denies nausea, vomiting, bleeding, burning, itching, irritation, cramps, diarrhea, constipation. Genitourinary: Denies urinary incontinence, pain with urination, burning with urination, urinary frequency, urinary hesitancy, urinary urgency, urinary urgency at night, incomplete emptying, blood in urine. Musculoskeletal: Denies back pain, joint pain, leg pain, joint swelling, body aches, muscle aches, muscle cramps, muscle weakness, stiffness, recent injury. Skin: Denies rash, hives, redness, itching, dryness, nail changes, suspicious lesions, athlete's foot, rash on palms, rash on bottom of feet. Neurologic: Denies muscle impairment, weakness, numbness/tingling, seizures, slurred speech, feeling faint, tremors, vertigo, paralysis on one side, paralysis on both sides. Psychiatric: Denies depression, anxiety, memory loss, mental disturbance, suicidal ideation, homicidal ideation, hallucinations, paranoia, feeling stressed, hearing voices. Endocrine: Denies cold intolerance, heat intolerance, excessive thirst, excessive hunger, excessive urination, weight loss, weight gain. Heme/Lymphatic: Denies abnormal bruising, bleeding, enlarged lymph nodes. Physical ExamGeneral Appearance: well nourished, well hydrated, no acute distressEyes, External: conjunctivae and lids normal, EOMIRespiratory, Auscultation: clear to auscultation bilaterally; no rales, rhonchi, or wheezesRespiratory, Effort: no intercostal retractions or use of accessory musclesCardiovascular, Auscultation: S1, S2 audible; no murmur, rub, or gallop; RRRPeripheral Circulation: no clubbing, cyanosis, edema, or varicositiesAbdomen: obese, soft, non-tender, no masses, bowel sounds normalGait & Station: normalSkin, Inspection: no rashes, lesions, or ulcerationsOrientation: oriented to time, place, and personMood & Affect: no depression, anxiety, or agitationJudgment & Insight: intactCare Management Plan Transitions of CareInboundRate Your HealthIn general, would you say your health is? FairAssessment & Plan Problems:Assessed:Nicotine dependence, unspecified, uncomplicated (WOE72-Q95.200) Assessment: Instructions: We have sent a prescription to your your pharmacy to start chantix. please use medication as directed. Please report any major side effects. Please set quit date prior to starting chantix.Morbid obesity (ICD-278.01) (WFV02-Z18.01) Assessment: Instructions: We have made a nutritional referral for you today. We will contact you to set this up. Please continue lifestyle changes to include healthy diet and physical activities. Please try to maintain adequate fluid hydration.Health Screening (ICD-V70.0) (DWG21-F90.9) Assessment: Instructions: We have ordered labs for you today. Please return prior to your next visit to have labs drawn. Please fast for 8-10 hours prior.Asthma (ICD-493.90) (HAP29-Z07.909) Assessment: Instructions: Please continue medications as prescribed. We have made a referral for you today. We will contact you to set this up.History of myocardial infarction (ICD-V12.59) (BVB30-Q78.2) Assessment: Instructions: Please continue medications as prescribed. Please continue lifestyle changes to include healthy diet and physical activities. We have made a referral for you today. We will contact you to set this up.Unspecified essential hypertension (ICD-401.9) (GTJ16-X95) Assessment: Instructions: Please continue Medication as prescribed. Please continue lifestyle changes to include healthy diet and physical activities. Please try to to avoid added sodium in your diet.Hyperlipidemia (ICD-272.4) (DNE87-J44.5) Assessment: Instructions: Please continue medication as prescribed. Please continue lifestyle changes to include healthy diet and physical activities. Please try to avoid processed foodsPatient Instructions/Care Plan: Nicotine dependence- unspecified- uncomplicated: We have sent a prescription to your your pharmacy to start chantix. please use medication as directed. Please report any major side effects. Please set quit date prior to starting chantix.Morbid obesity: We have made a nutritional referral for you today. We will contact you to set this up. Please continue lifestyle changes to include healthy diet and physical activities. Please try to maintain adequate fluid hydration.Health Screening: We have ordered labs for you today. Please return prior to your next visit to have labs drawn. Please fast for 8-10 hours prior.Asthma: Please continue medications as prescribed. We have made a referral for you today. We will contact you to set this up.History of myocardial infarction: Please continue medications as prescribed. Please continue lifestyle changes to include healthy diet and physical activities. We have made a referral for you today. We will contact you to set this up.Unspecified essential hypertension: Please continue Medication as prescribed. Please continue lifestyle changes to include healthy diet and physical activities. Please try to to avoid added sodium in your diet.Hyperlipidemia: Please continue medication as prescribed. Please continue lifestyle changes to include healthy diet and physical activities. Please try to avoid processed foods Plan developed in collaboration with patient and/or familyMedications:CHANTIX STARTING MONTH FLOWER 0.5 MG X 11 & 1 MG X 42 ORAL TABLETVITAMIN D3 32217 UNIT ORAL TABLETCLARITIN 10 MG ORAL CAPSULEASPIRIN EC LOW DOSE 81 MG ORAL TABLET DELAYED RELEASEBRILINTA 60 MG ORAL TABLETCARVEDILOL 3.125 MG ORAL TABLETNORVASC 5 MG ORAL TABLETLISINOPRIL 5 MG ORAL TABLETADVAIR DISKUS 250-50 MCG/DOSE INHALATION AEROSOL POWDER BREATH ACTIVATEDVENTOLIN HFA 108 (90 BASE) MCG/ACT INHALATION AEROSOL SOLUTIONMedication Changes:Refilled:VITAMIN D3 12858 UNIT ORAL TABLET-take one tablet by mouth weekly Qty: 4[Tablet] Refills: 2 Method: ElectronicCLARITIN 10 MG ORAL CAPSULE-take one tablet by mouth daily Qty: 30[Capsule] Refills: 2 Method: ElectronicASPIRIN EC LOW DOSE 81 MG ORAL TABLET DELAYED RELEASE-one tablet by mouth daily Qty: 30[Tablet] Refills: 2 Method: ElectronicBRILINTA 60 MG ORAL TABLET-one tablet by mouth daily Qty: 30[Tablet] Refills: 2 Method: ElectronicCARVEDILOL 3.125 MG ORAL TABLET-take one tablet by mouth daily Qty: 30[Tablet] Refills: 2 Method: ElectronicNORVASC 5 MG ORAL TABLET-take one tablet by mouth daily Qty: 30[Tablet] Refills: 2 Method: ElectronicLISINOPRIL 5 MG ORAL TABLET-take one tablet by mouth daily Qty: 30[Tablet] Refills: 2 Method: ElectronicADVAIR DISKUS 250-50 MCG/DOSE INHALATION AEROSOL POWDER BREATH ACTIVATED-take one puff by mouth BID Qty: 1[Inhaler] Refills: 2 Method: ElectronicVENTOLIN HFA 108 (90 BASE) MCG/ACT INHALATION AEROSOL SOLUTION-take 2 puffs q 4 hours as needed for SOB Qty: 1[Inhaler] Refills: 2 Method: ElectronicNew Prescription:CHANTIX STARTING MONTH FLOWER 0.5 MG X 11 & 1 MG X 42 ORAL TABLET-Take as directed Qty: 1[Tablet] Refills: 1 Method: ElectronicChanged:From: ORAL ASPIRIN EC LOW DOSE 81 MG ORAL TABLET DELAYED RELEASE Qty: [id number] Refills: 30[Tablet] To: ASPIRIN EC LOW DOSE 81 MG ORAL TABLET DELAYED RELEASE- one tablet by mouth daily Qty: 30[Tablet] Refills: 2From: ORAL BRILINTA 60 MG ORAL TABLET Qty: [id number] Refills: 30[Tablet] To: BRILINTA 60 MG ORAL TABLET-one tablet by mouth daily Qty: 30[Tablet] Refills: 2From: ORAL AMLODIPINE-ATORVASTATIN TABLET Qty: [id number] Refills: 30[Tablet] To: NORVASC 5 MG ORAL TABLET-take one tablet by mouth daily Qty: 30[Tablet] Refills: 2From: ORAL LISINOPRIL 5 MG ORAL TABLET Qty: [id number] Refills: 30[Tablet] To: LISINOPRIL 5 MG ORAL TABLET-take one tablet by mouth daily Qty: 30[Tablet] Refills: 2Allergies:No Known Allergies (updated 01/04/2019) Orders:Cardiology Consult [CPT-01867] Pulmonology Consult [CPT-52564] Nutrition [CPT-70057] COMP METABOLIC PANEL [CPT-92855] CBC W/DIFF [CPT-90376] HgBA1c [CPT-95279] LIPID PANEL [CPT-81400] TSH [CPT-68469] T-4 free [CPT-32280] Vitamin D 250H Unspecified [CPT-90183] URINALYSIS [CPT-10680] VITAMIN B-12 [CPT-50234] Folate (Folic Acid Serum) [CPT-99161] Adult - Ofc Vst, EST, Level IV [CPT-70288] Follow-Up Return to clinic: 6-8 weeks for follow up Medications:CHANTIX STARTING MONTH FLOWER 0.5 MG X 11 & 1 MG X 42 ORAL TABLET (VARENICLINE TARTRATE) Take as directed #1[Tablet] x 1 Route:ORAL Entered and Authorized by: Danielle MERLOS Method used: Electronically to [facility] (retail) [address] [place] [address] Note to Pharmacy: Route: ORAL; Indications: NICOTINE DEPENDENCE, UNSPECIFIED, UNCOMPLICATED RxID: [id number] HFA 108 (90 BASE) MCG/ACT INHALATION AEROSOL SOLUTION (ALBUTEROL SULFATE) take 2 puffs q 4 hours as needed for SOB #1[Inhaler] x 2 Route:INHALATION Entered and Authorized by: Danielle MERLOS Method used: Electronically to [facility] (retail) [address] [place] [address] Note to Pharmacy: Route: INHALATION; RxID: [id number] DISKUS 250-50 MCG/DOSE INHALATION AEROSOL POWDER BREATH ACTIVATED (FLUTICASONE-SALMETEROL) take one puff by mouth BID #1[Inhaler] x 2 Route:INHALATION Entered and Authorized by: Danielle MERLOS Method used: Electronically to [facility] (retail) [address] [place] [address] Note to Pharmacy: Route: INHALATION; RxID: [id number] 5 MG ORAL TABLET (LISINOPRIL) take one tablet by mouth daily #30[Tablet] x 2 Route:ORAL Entered and Authorized by: Danielle MERLOS Method used: Electronically to [facility] (retail) [address] [place] [address] Note to Pharmacy: Route: ORAL; Indications: UNSPECIFIED ESSENTIAL HYPERTENSION RxID: [id number] 5 MG ORAL TABLET (AMLODIPINE BESYLATE) take one tablet by mouth daily #30[Tablet] x 2 Route:ORAL Entered and Authorized by: Danielle MERLOS Method used: Electronically to [facility] (retail) [address] [place] [address] Note to Pharmacy: Route: ORAL; Indications: UNSPECIFIED ESSENTIAL HYPERTENSION RxID: [id number] 3.125 MG ORAL TABLET (CARVEDILOL) take one tablet by mouth daily #30[Tablet] x 2 Route:ORAL Entered and Authorized by: Danielle MERLOS Method used: Electronically to [facility] (retail) [address] [place] [address] Note to Pharmacy: Route: ORAL; RxID: [id number] 60 MG ORAL TABLET (TICAGRELOR) one tablet by mouth daily #30[Tablet] x 2 Route:ORAL Entered and Authorized by: Danielle MERLOS Method used: Electronically to [facility] (retail) [address] [place] [address] Fax: Note to Pharmacy: Route: ORAL; Indications: HISTORY OF MYOCARDIAL INFARCTION RxID: [id number] EC LOW DOSE 81 MG ORAL TABLET DELAYED RELEASE (ASPIRIN) one tablet by mouth daily #30[Tablet] x 2 Route:ORAL Entered and Authorized by: Danielle MERLOS Method used: Electronically to [facility] (retail) [address] [place] [address] Note to Pharmacy: Route: ORAL; Indications: HISTORY OF MYOCARDIAL INFARCTION RxID: [id number] 10 MG ORAL CAPSULE (LORATADINE) take one tablet by mouth daily #30[Capsule] x 2 Route:ORAL Entered and Authorized by: Danielle MERLOS Method used: Electronically to [facility] (retail) [address] [place] [address] Note to Pharmacy: Route: ORAL; Indications: ASTHMA RxID: [id number] D3 12922 UNIT ORAL TABLET (CHOLECALCIFEROL) take one tablet by mouth weekly #4[Tablet] x 2 Route:ORAL Entered and Authorized by: Danielle MERLOS Method used: Electronically to [facility] (retail) [address] [place] [address] Fax: Note to Pharmacy: Route: ORAL; Indications: VITAMIN D DEFICIENCY RxID: [id number] signed by Danielle MERLOS on 08/18/2019 at 5:14 PM Name Value Range Interpretation Code Description Data [place] rce(s) Supporting Document(s) Procedure
--- OUTSIDE RECORDS SUMMARY | 2020-09-08 11:44 | CCD ---
Author Author [facility] Address Unknown Phone Unavailable Support Name Relationship Address Phone Wesly Next Of Kin Unknown Unavailable Danielle Gil Next Of Kin [address] [place] [address] BUFFALOWW Next Of Kin [address] [place] [address] PAWEL Next Of Kin [address] [place] [address] NILAM ARIAS Next Of Kin [address] [facility] [address] [place] [address] IVIS SORENSON Next Of Kin [address] [place] [address] BRIEN ARIAS Next Of Kin [address] [facility] [address] [place] [address] WESLY BELTRAN Next Of Kin [address] [place] [address] MANOJ Next Of Kin [address] [place] [address] NICHOLE ARIAS Next Of Kin [address] [facility] [address] [place] [address] ALFIE ARIAS Next Of Kin [address] [facility] [address] [place] [address] BURGRSTATE Next Of Kin [address] [place] [address] [place]. [place] RECYCLING W[place]E Next Of Kin [address] [address] UNEMPLOYED Next Of Kin [address] [place] [address] BABAR MEMBRENO Next Of Kin [address] [facility] [facility] [address] [place] [address] TEMI LINH Next Of Kin [address] [facility] [place] [address] QASIMZIGGYE Next Of Kin Unknown CHARLESJOYDEVORA Next Of Kin [address] [place] [address] SMILEYERWIN LARRY Next Of Kin [address] [place] [address] MARIO SMILEY Next Of Kin [address] [place] [address] MERCEDEZ MONIQUE Next Of Kin [address] [facility] [address] [place] [address] ST Next Of Kin Unknown Unavailable JUDIE MONIQUE Next Of Kin [address] [place] [address] UE Next Of Kin Unknown Unavailable DENAE HOOPER Next Of Kin [address] / [facility] [address] [place] [address] Care Team Providers Care Mathematics Faculty Member Name Role Phone Jason, Danielle REGULATORY AFFAIRS CONSULTANT REGULATORY AFFAIRS CONSULTANT Unavailable Unavailable Jason, A Danielle REGULATORY AFFAIRS CONSULTANT Unavailable Unavailable Jason, A Danielle REGULATORY AFFAIRS CONSULTANT Unavailable Unavailable Jason, A Danielle REGULATORY AFFAIRS CONSULTANT Unavailable Unavailable Jason, A Danielle REGULATORY AFFAIRS CONSULTANT Unavailable Unavailable [place], A Danielle REGULATORY AFFAIRS CONSULTANT Unavailable Unavailable [place], A Danielle REGULATORY AFFAIRS CONSULTANT Unavailable Unavailable Jason, A Danielle REGULATORY AFFAIRS CONSULTANT Unavailable Unavailable Jason, A Danielle REGULATORY AFFAIRS CONSULTANT Unavailable Unavailable Jason, A Danielle REGULATORY AFFAIRS CONSULTANT Unavailable Unavailable Jason, A Danielle REGULATORY AFFAIRS CONSULTANT Unavailable Unavailable [place], A Danielle REGULATORY AFFAIRS CONSULTANT Unavailable Unavailable Jason, A Danielle REGULATORY AFFAIRS CONSULTANT Unavailable Unavailable Jason, A Danielle REGULATORY AFFAIRS CONSULTANT Unavailable Unavailable Jason, A Danielle REGULATORY AFFAIRS CONSULTANT Unavailable Unavailable Jason, A Danielle REGULATORY AFFAIRS CONSULTANT Unavailable Unavailable Jason, A Danielle REGULATORY AFFAIRS CONSULTANT Unavailable Unavailable Jason, A Danielle REGULATORY AFFAIRS CONSULTANT Unavailable Unavailable Jason, A Danielle REGULATORY AFFAIRS CONSULTANT Unavailable Unavailable Jason, A Danielle REGULATORY AFFAIRS CONSULTANT Unavailable Unavailable Jason, A Danielle REGULATORY AFFAIRS CONSULTANT Unavailable Unavailable Jason, A Danielle REGULATORY AFFAIRS CONSULTANT Unavailable Unavailable Jason, A Danielle REGULATORY AFFAIRS CONSULTANT Unavailable Unavailable Jason, A Danielle REGULATORY AFFAIRS CONSULTANT Unavailable Unavailable Jason, A Danielle REGULATORY AFFAIRS CONSULTANT Unavailable Unavailable Jason, A Danielle REGULATORY AFFAIRS CONSULTANT Unavailable Unavailable Jason, A Danielle REGULATORY AFFAIRS CONSULTANT Unavailable Unavailable Jason, A Danielle REGULATORY AFFAIRS CONSULTANT Unavailable Unavailable Jason, A Danielle REGULATORY AFFAIRS CONSULTANT Unavailable Unavailable Re-disclosure Warning The records that [...] is protected by Article 27-F of the [facility] Public Health law. If you continue you may have access to information: Regarding HIV / AIDS; Provided by facilities licensed or operated by the [facility] Office of Mental Health; or Provided by the [facility] Office for People With Developmental Disabilities. If such information is present, then the following [facility] mandated warning applies: This information has [...] law may result in a fine or intermediate sentence or both. A general authorization for the release of medical or other information is NOT sufficient authorization for further disc losure. Family History Family Member Name Family Member Gender Family Member Status Date o f Status Description Data Source(s) Unknown Unknown Problem [facility] ([facility]) Encounters Encounter Providers Location Date Indications Data Source(s ) Outpatient Attender: CHELITA Gomez [facility] 06/09/2020 04:38:[address] [facility] Outpatient Attender: CHELITA Gomez [facility] 05/08/2020 12:02:[address] [facility] Outpatient Attender: CHELITA Gomez [facility] 05/07/2020 04:01:00 P M EDT [facility] Outpatient Attender: Danielle JERRYP FP 05/05/2020 06:1 6:03 AM EDT [facility] Outpatient Attender: Danielle JERRYP FP 02/24/2020 01:1 6:00 PM EDT [facility] Outpatient Attender: CHELITA JERRYP FP 01/14/2020 07:55:10 P M EDT [facility] Outpatient Attender: Danielle JERRYP FP 12/23/2019 08:3 1:01 AM EDT [facility] Outpatient Attender: Danielle Gomez REGULATORY AFFAIRS CONSULTANT FP 10/20/2019 11:3 2:01 AM EDT [facility] Outpatient Attender: CHELITA JERRYP FP 10/17/2019 11:57:01 A M EDT [facility] Outpatient Attender: CHELITA Gomez REGULATORY AFFAIRS CONSULTANT FP 10/11/2019 10:53:01 A M [facility] Outpatient Attender: CHELITA JERRYP FP 09/30/2019 12:47:01 P M [facility] Outpatient Attender: CHELITA Gomez REGULATORY AFFAIRS CONSULTANT FP 09/26/2019 03:39:06 P M [facility] Outpatient Attender: CHELITA JERRYP FP 09/18/2019 05:26:00 P M [facility] Outpatient Attender: Danielle JERRYP FP 09/18/2019 01:1 6:02 PM [facility] Outpatient Attender: CHELITA JERRYP FP 09/11/2019 11:24:01 A M [facility] Outpatient Attender: CHELITA JERRYP FP 09/11/2019 10:41:00 A M [facility] Outpatient Attender: CHELITA JERRYP FP 08/20/2019 10:35:01 A M [facility] Outpatient Attender: Danielle JERRYP FP 08/18/2019 05:1 4:59 PM [facility] Outpatient Attender: CHELITA JERRYP FP 08/15/2019 11:19:00 A M [facility] Outpatient Attender: CHELITA JERRYP FP 08/15/2019 11:18:00 A M [facility] Outpatient Attender: CHELITA JERRYP FP 08/14/2019 04:53:02 P M [facility] Outpatient Attender: Danielle Gomez REGULATORY AFFAIRS CONSULTANT 08/14/2019 11:0 8:01 AM [facility] Outpatient Attender: CHELITA Gomez REGULATORY AFFAIRS CONSULTANT 08/14/2019 10:38:00 A M [facility] Outpatient Attender: CHELITA Gomez REGULATORY AFFAIRS CONSULTANT 08/09/2019 09:04:01 A M [facility] Outpatient Att[facility]: [facility]2019 09:4 0:00 AM [facility] Outpatient Attender: Danielle Gomez REGULATORY AFFAIRS CONSULTANT 07/21/2019 07:3 9:01 PM [facility] Outpatient Attender: CHELITA Gomez REGULATORY AFFAIRS CONSULTANT 07/19/2019 10:22:00 A M [facility] Medications Medication Brand Name Start Date Product [...] type / Coverage type Policy ID Covered green party ID Covered green party's relationship to rojas Policy Rojas Plan Information Medicaid S [id number] S [id number] [facility] Plan P [id number] S [id number] Medicaid S [id number] S [id number] Medicaid S [id number] S [id number] [facility] Plan P [id number] S [id number] [facility] P [id number] S [id number] [facility] COMM[facility] PL[facility] [id number] SP [id number] MEDICAID [id number] SP [id number] Managed Care - [facility] P [id number] S [id number] Medicaid S [id number] S [id number] [facility] COMMUNITY PLAN [facility] [id number] SP [id number] [facility] PLAN [facility] [id number] SP [id number] [facility] Health Maintenance Organization (HMO) [id number] Self [id number] [facility] Health Maintenance Organization (HMO) [id number] Self [id number] MEDICAID -O/P [id number] MEDICAID [id number] Luz [id number] MEDICAID PI PI MEDICAID -O/P EMERGENCY ROOM [id number] MEDICAID -O/P EMERGENCY ROOM [id number] SELF PAY ONLY [id number] SP [id number] [id number] SP [id number] [facility] O [id number] S [id number] PETEY [id number] SP [id number] [facility] [place] O [id number] S [id number] Petey Care Commercial Self SELF PAY UNAVAILABLE SP UNAVAILA BLE BLUE CROSS BELTRAN PLAN [id number] SP [id number] [facility] BLUE [facility] [id number] [facility] [id number] SP [id number] SELF PAY [id number] SP [id number] MEDICAID P [id number] S [id number] Results ID Date Data Source [id number] 08/20/2020 12:00:00 AM EST [facility] Name Value Range Interpretation Code Description Data Socorro rce(s) Supporting Document(s) SARS-CoV2 Rapid Antigen Negative [facility] and reported by [facility]. ID Date Data Source [id number] 09/11/2019 11:04:[address] [facility] Measurements & CalculationsWeight: 388 pounds 6 oz. 176.54 kg Vital SignsPulse Rate: 87 beats/minuteBlood Pressure: 136/87 Vital Signs performed by: Tucker Spears MA, September 11, 2019 11:05 AMAssessment & Plan Orders:[id number] Vst-Est Level I [CPT-64438] Name Value Range Interpretation Code Description Data Socorro rce(s) Supporting Document(s) ID Date Data Source [id number] 08/14/2019 06:03:[address] [facility] Measurements & CalculationsHeight: 65 inches (5 [...] up visit. Pt was previously referred to marketing information coordinator , Pulmonary and dietary. Pt statates did [...] during this visit, including review of any mizj-kft-depysfi medications, herbal therapies, and/or supplements.Allergy ReviewAllergy List [...] FairAssessment & Plan Problems:Assessed:Nicotine dependence, unspecified, uncomplicated (BBW78-K62.200) Assessment: Instructions: We have sent a prescription to your your pharmacy to start chantix. please use medication as directed. Please report any major side effects. Please set quit date prior to starting chantix.Morbid obesity (ICD-278.01) (NAU41-J28.01) Assessment: Instructions: We have made a nutritional referral for you today. We will contact you to set this up. Please continue lifestyle changes to include healthy diet and physical activities. Please try to maintain adequate fluid hydration.Health Screening (ICD-V70.0) (BDB73-P26.9) Assessment: Instructions: We have ordered labs for you today. Please return prior to your next visit to have labs drawn. Please fast for 8-10 hours prior.Asthma (ICD-493.90) (AYN03-T76.909) Assessment: Instructions: Please continue medications as prescribed. We have made a referral for you today. We will contact you to set this up.History of myocardial infarction (ICD-V12.59) (VPW01-C10.2) Assessment: Instructions: Please continue medications as prescribed. Please continue lifestyle changes to include healthy diet and physical activities. We have made a referral for you today. We will contact you to set this up.Unspecified essential hypertension (ICD-401.9) (RTP51-U11) Assessment: Instructions: Please continue Medication as prescribed. Please continue lifestyle changes to include healthy diet and physical activities. Please try to to avoid added sodium in your diet.Hyperlipidemia (ICD-272.4) (CMJ56-L07.5) Assessment: Instructions: Please continue medication as prescribed. [...] 1 MG X 42 ORAL TABLETVITAMIN D3 84553 UNIT ORAL TABLETCLARITIN 10 MG ORAL CAPSULEASPIRIN EC LOW DOSE 81 MG ORAL TABLET DELAYED RELEASEBRILINTA 60 MG ORAL TABLETCARVEDILOL 3.125 MG ORAL TABLETNORVASC 5 MG ORAL TABLETLISINOPRIL 5 MG ORAL TABLETADVAIR DISKUS 250-50 MCG/DOSE INHALATION AEROSOL POWDER BREATH ACTIVATEDVENTOLIN HFA 108 (90 BASE) MCG/ACT INHALATION AEROSOL SOLUTIONMedication Changes:Refilled:VITAMIN D3 08380 UNIT ORAL TABLET-take one tablet by mouth [...] 81 MG ORAL TABLET DELAYED RELEASE Qty: [id number] Refills: 30[Tablet] To: ASPIRIN EC LOW DOSE 81 MG ORAL TABLET DELAYED RELEASE- one tablet by mouth daily Qty: 30[Tablet] Refills: 2From: ORAL BRILINTA 60 MG ORAL TABLET Qty: [id number] Refills: 30[Tablet] To: BRILINTA 60 MG ORAL TABLET-one tablet by mouth daily Qty: 30[Tablet] Refills: 2From: ORAL AMLODIPINE-ATORVASTATIN TABLET Qty: [phone] Refills: 30[Tablet] To: NORVASC 5 MG ORAL TABLET-take one tablet by mouth daily Qty: 30[Tablet] Refills: 2From: ORAL LISINOPRIL 5 MG ORAL TABLET Qty: [id number] Refills: 30[Tablet] To: LISINOPRIL 5 MG ORAL TABLET-take one tablet by mouth daily Qty: 30[Tablet] Refills: 2Allergies:No Known Allergies (updated 01/04/2019) Orders:Cardiology Consult [CPT-99241] Pulmonology Consult [CPT-11483] Nutrition [CPT-79680] COMP METABOLIC PANEL [CPT-36111] CBC W/DIFF [CPT-05598] HgBA1c [CPT-21949] LIPID PANEL [CPT-18595] TSH [CPT-33798] T-4 free [CPT-86932] Vitamin D 250H Unspecified [CPT-06738] URINALYSIS [CPT-79491] VITAMIN B-12 [CPT-39691] Folate (Folic Acid Serum) [CPT-55675] Adult - Ofc Vst, EST, Level IV [CPT-06475] Follow-Up Return to clinic: 6-8 weeks for follow up Medications:CHANTIX STARTING MONTH FLOWER 0.5 MG X 11 & 1 MG X 42 ORAL TABLET (VARENICLINE TARTRATE) Take as directed #1[Tablet] x 1 Route:ORAL Entered and Authorized by: Danielle MERLOS Method used: Electronically to [facility] (retail) [address] [place] [address] Note to Pharmacy: Route: ORAL; Indications: NICOTINE DEPENDENCE, UNSPECIFIED, UNCOMPLICATED RxID: [id number] HFA 108 (90 BASE) MCG/ACT INHALATION AEROSOL SOLUTION (ALBUTEROL SULFATE) take 2 puffs q 4 hours as needed for SOB #1[Inhaler] x 2 Route:INHALATION Entered and Authorized by: Danielle MERLOS Method used: Electronically to [facility] (retail) [address] [place] [address] Note to Pharmacy: Route: INHALATION; RxID: [id number] DISKUS 250-50 MCG/DOSE INHALATION AEROSOL POWDER BREATH ACTIVATED (FLUTICASONE-SALMETEROL) take one puff by mouth BID #1[Inhaler] x 2 Route:INHALATION Entered and Authorized by: Danielle MERLOS Method used: Electronically to [facility] (retail) [address] [place] [address] Note to Pharmacy: Route: INHALATION; RxID: [id number] 5 MG ORAL TABLET (LISINOPRIL) take one tablet by mouth daily #30[Tablet] x 2 Route:ORAL Entered and Authorized by: Danielle MERLOS Method used: Electronically to [facility] (retail) [address] [place] [address] Note to Pharmacy: Route: ORAL; Indications: UNSPECIFIED ESSENTIAL HYPERTENSION RxID: [id number] 5 MG ORAL TABLET (AMLODIPINE BESYLATE) take one tablet by mouth daily #30[Tablet] x 2 Route:ORAL Entered and Authorized by: Danielle MERLOS Method used: Electronically to [facility] (retail) [address] [place] [address] Note to Pharmacy: Route: ORAL; Indications: UNSPECIFIED ESSENTIAL HYPERTENSION RxID: [id number] 3.125 MG ORAL TABLET (CARVEDILOL) take one tablet by mouth daily #30[Tablet] x 2 Route:ORAL Entered and Authorized by: Danielle MERLOS Method used: Electronically to [facility] (retail) [address] [place] [address] Note to Pharmacy: Route: ORAL; RxID: [id number] 60 MG ORAL TABLET (TICAGRELOR) one tablet by mouth daily #30[Tablet] x 2 Route:ORAL Entered and Authorized by: Danielle MERLOS Method used: Electronically to [facility] (retail) [address] [place] [address] Fax: Note to Pharmacy: Route: ORAL; Indications: HISTORY OF MYOCARDIAL INFARCTION RxID: [id number] EC LOW DOSE 81 MG ORAL TABLET DELAYED RELEASE (ASPIRIN) one tablet by mouth daily #30[Tablet] x 2 Route:ORAL Entered and Authorized by: Danielle MERLOS Method used: Electronically to [facility] (retail) [address] [place] [address] Note to Pharmacy: Route: ORAL; Indications: HISTORY OF MYOCARDIAL INFARCTION RxID: [id number] 10 MG ORAL CAPSULE (LORATADINE) take one tablet by mouth daily #30[Capsule] x 2 Route:ORAL Entered and Authorized by: Danielle MERLOS Method used: Electronically to [facility] (retail) [address] [place] [address] Note to Pharmacy: Route: ORAL; Indications: ASTHMA RxID: [id number] D3 59789 UNIT ORAL TABLET (CHOLECALCIFEROL) take one tablet by mouth weekly #4[Tablet] x 2 Route:ORAL Entered and Authorized by: Danielle MERLOS Method used: Electronically to [facility] (retail) [address] [place] [address] Fax: Note to Pharmacy: Route: ORAL; Indications: VITAMIN D DEFICIENCY RxID: [id number] signed by Danielle MERLOS on 08/18/2019 at 5:14 PM Name Value Range Interpretation Code Description Data Socorro rce(s) Supporting Document(s) Procedure
--- NOTE | 2020-09-08 11:51 | REP ---
INDICATION: sob/cough. COMPARISON: 06/01/2018. TECHNIQUE: SINGLE PORTABLE AP VIEW OF THE CHEST WAS PERFORMED. FINDINGS: There is no acute infiltrate. There is moderate cardiomegaly. The mediastinal silhouette appears unremarkable. A diagnosis lobes noted superiorly on the right, a normal variant. IMPRESSION: NO ACUTE PULMONARY DISEASE.Moderate cardiomegaly. <Electronically signed by Dat Carlin > 09/08/20 1140
[2020-09-08 11:57] VITALS: BP 167/67
[2020-09-08] MEDS ORDERED: CARV3.12 (11:57)
[2020-09-08] MEDS ORDERED: ALBU8.5H (11:57)
[2020-09-08] MEDS ORDERED: ASPI81CH33 (11:57)
[2020-09-08] MEDS ORDERED: LORA-674 (11:57)
[2020-09-08] MEDS ORDERED: AMLO1TAB24 (11:57)
[2020-09-08] MEDS ORDERED: BRIL1TAB (11:57)
[2020-09-08] MEDS ORDERED: AMOX500C PO (12:17)
[2020-09-08] MEDS ORDERED: PRED20TA PO (12:17)
--- NOTE | 2020-09-08 13:26 | ED PDOC ---
Post-Departure Follow-Up jodi rivas faxed formal report of cxr for fu nikkig Boom Amaya MD Sep 08, 2020 13:26
== END 2020-09-08 12:50 | disposition home or self-care (01) ==
LOC: M ED 10:44
DX: J20.9 Acute bronchitis, unspecified (principal); J45.901 Unspecified asthma with (acute) exacerbation; J02.9 Acute pharyngitis, unspecified; Z20.828 Contact with and (suspected) exposure to other viral communicable diseases; I51.7 Cardiomegaly; E78.5 Hyperlipidemia, unspecified; Z95.5 Presence of coronary angioplasty implant and graft; E66.9 Obesity, unspecified; Z79.899 Other long term (current) drug therapy
CPT/HCPCS: 71045; 87804; 99283; U0003